=== PATIENT | male | born 1970 | race Caucasian/White ===

== ENCOUNTER 2020-08-22 10:02 | Emergency (ER) | payer MEDICAID ==
[2020-08-22] MEDS ORDERED: Metoclopramide 10 MG/2 ML SDV IVPUSH ONE (10:15)
[2020-08-22] MEDS ORDERED: Dextrose 5%-Lactated Ringers 1,000 ML IV SCH (10:15)
[2020-08-22] MEDS ORDERED: Lidocaine 2% Jelly 10 ML Urojet MUCMEM ONE (10:16)
--- NOTE | 2020-08-22 10:21 | EDM.PDOC ---
ED HPI GENERAL MEDICAL PROBLEM - General Chief Complaint: Trauma Stated Complaint: [facility] Time Seen by Provider: 08/22/20 10:14 Source of Information: Reports: Patient History Limitations: Reports: Altered Mental Status - History of Present Illness INITIAL COMMENTS - FREE TEXT/NARRATIVE: 49-year-old male presents to the ED per [facility] and is nonverbal. History suggest that he was found at the bottom of a stairwell in an apartment building possibly having fallen down 8 concrete stairs. Patient was found unresponsive and likely unconscious. Clear at this time who found a man who called the ambulance. Does have some swelling over his left anterior face. Both pupils are 4 mm in size and respond to light sluggishly there is no gaze palsy. Information obtained after the patient already left the department indicates that he was speaking to the paramedics upon arrival. He deteriorated neurologically in route to the hospital and by the time he was in the examining room and a trauma alert was called he was unresponsive to verbal and physical stimuli. Patient appears to be severely intoxicated by alcohol and he is not able to offer any information. He arrives c-collar in place but not on spine board. He appears to have had an old injury to his left anterior shoulder with bruising 2 to 3 days of age. Similarly bruising to both knees particular the left side appears to be 2 to 3 days of age. No outward signs of head or facial trauma. Chest wall showed no syncope subcutaneous emphysema or crepitus. No obvious injuries to either upper extremity other than the bruising and ecchymoses of the left anterior lateral shoulder. Acromioclavicular joints appear to be intact. Benign abdominal examination. Genitals normal anus has normal rectal tone. Logrolling showed no abrasions contusions or abnormalities of the thoracic or lumbar spine with no step-off deformities of the spinous processes. There are a few superficial scratches to the left posterior iliac crest and upper buttock area. He had normal internal/external rotation of both hips no evidence of pelvic fracture femurs and tib-fib's appear to be intact. Onset: Unknown/Unsure (It is unclear how long he has been lying at the bottom of the stairwell. He was very cool to examination nurses recorded temperature is 35.8.) Onset Date: 08/22/20 (Zomig release sometime early this morning) Duration: Other (Known) Location: Reports: Face Improves with: Reports: None Worsens with: Reports: None Context: Reports: Trauma (Still falling down 8 concrete stairs under the influence of alcohol.). 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) - Related Data Allergies Allergy/AdvReac Type Severity Reaction Status Date / Time acetaminophen [From Lortab] Allergy Nausea and Verified 10/23/19 03:06 MONOTYPE SETTER Vomiting hydrocodone bitartrate Allergy Nausea and Verified 10/23/19 03:06 MONOTYPE SETTER [From Lortab] Vomiting any narcotics Allergy Hypotension Uncoded 10/23/19 03:06 MONOTYPE SETTER Home Meds: Home Meds Aspirin 81 mg PO DAILY 10/23/19 [History] Past Medical History - Past Health History Medical/Surgical History: Denies Medical/Surgical History Other Respiratory History: "film on left lung base" Gastrointestinal History: Reports: GERD, PUD Other Gastrointestinal History: Ulcers, currently bleeding - Infectious Disease History Infectious Disease History: Reports: Chicken Pox - Past Surgical History GI Surgical History: Reports: Charlotte Fundoplication Social & Family History - Family History Family Medical History: No Pertinent Family History - Living Situation & Occupation Living situation: Reports: Single Occupation: Unemployed Review of Systems - Review of Systems Review Of Systems: Unable To Obtain Reason Not Obtained: Able to obtain as the patient is unresponsive to verbal stimuli a ED EXAM, GENERAL - Physical Exam Exam: See Below Exam Limited By: Other (Arrives unresponsive to verbal stimuli and moans only to aggressive sternal rub.) General Appearance: Other (Temperature was recorded at 35.8. Heart rate 109 and sinus respiratory to 16 pulse ox 100 BP 161 100 but it did come down to) Eye Exam: Bilateral Eye: Normal Inspection (pupils were 4 mm and equal bilaterally--sluggish to light.), PERRL (No gaze palsy) Ears: Normal External Exam, Normal TMs Nose: Other (Blood within the left anterior nares. Right nares clear. No nasal septal hematoma evident.) Throat/Mouth: Other (He appears to have chipped his right upper lateral incisor tooth. He could be old. There was some bright red blood in the posterior oropharynx.). No: Normal Teeth, Normal Oropharynx Head: Other (Obvious signs of trauma to the head. There is some mild facial swelling over the left zygoma and maxillary sinus) Neck: Other Respiratory/Chest: No Respiratory Distress (He arrives in a c-collar. He will be left in place until cleared C-spine cleared by CT scan.), Lungs Clear, Normal Breath Sounds, No Accessory Muscle Use, Other (Overt signs of chest wall trauma. No subcutaneous emphysema no crepitus on palpation of the ribs.) Cardiovascular: Normal Peripheral Pulses, Regular Rate, Rhythm, No Edema, No Gallop, No Murmur, No Rub, Tachycardia (Tachycardia 109/min.) Peripheral Pulses: 2+: Posterior Tibial (L), Posterior Tibial (R), Dorsalis Pedis (L), Dorsalis Pedis (R), 3+: Carotid (L), Carotid (R) GI/Abdominal: Normal Bowel Sounds, Soft, Non-Tender, No Organomegaly, No Abnormal Bruit, No Mass, Pelvis Stable, Other (He has a midline laparotomy surgical wound from xiphisternum to the umbilicus apparently had a Charlotte fundoplication for severe reflux disease.). No: Guarding, Rigid (Male) Exam: No Hernia, Circumcised, Other (Evidence of injury to the genitals.). No: Scrotum Tenderness (L) Rectal (Males) Exam: Normal Exam, Other (Good sphincter tone) Back Exam: Normal Inspection, Other ([place]eling shows no step-off deformities of the thoracic or lumbar spine. There are no abrasions contusions to the thoracic or lumbar spine. There is a few scratches over the left posterior iliac crest.) Extremities: Other (Has bruising anterior aspect of his left shoulder which appears to be 2 to 3 days old. He has range of motion is full. There are no injuries to the wrists fingers elbows or right shoulder. There is some bruising to the left anterior knee over the patella. Appears to be a few days old as well. He has full range of motion of his hips and knees and no pelvic fractures identified clinically.) Neurological: Unresponsive Skin Exam: Cool (Is cool to touch it appears that he has been exposed to the elements for period of time. Nurses recorded temperature is 35.8.) ED TRAUMA PROCEDURES - Endotracheal Intubation Time of Intubation: 12:05 ET Intubation Indication: Airway Protection Preparation: Suction, Balloon Tested, BVM Set Up, Difficult Airway Equip, Other Pre-Oxygenation: Assisted with BVM, 100% FiO2 Anesthesia Meds: Etomidate, Lidocaine ( 4 mg 120 mg), Midazolam (2 mg), Succinylcholine (20 mg), Vecuronium (8 mg) Placement: Orotracheal, Complicated Placement Cords Visualized: No, Grade 2 ETT Size In mm: 8 Number of Attempts: 1 Confirmed By: CO2 Indicator, Bilateral Breath Sounds, Chest Xray Tube Secured By: By RT Endotracheal Intubation Comment: Patient on ventilator initially with respiratory rate of 12. Tidal volume of 500 mils. PEEP of 5 FiO2 of 50% #1 Interpretation EKG Date: 08/22/20 Time: 11:00 Rhythm: Other Rate (Beats/Min): 114 [place]: Normal P-Wave: Present QRS: Other (Initial poor R wave progression. Early R wave transition consider septal hypertrophy pattern) ST-T: Normal QT: Prolonged (Mildly prolonged) EKG Interpretation Comments: Abnormal ECG Course - Vital Signs Last Recorded V/S: Last Vital Signs Temp 35.8 C L 08/22/20 10:14 Pulse 109 H 08/22/20 10:14 Resp 16 08/22/20 10:14 BP 161/100 H 08/22/20 10:14 Pulse Ox 100 08/22/20 10:14 - Orders/Labs/Meds Orders: Active Orders 24 hr Category Date Time Status Cervical Spine wo Cont [CT] Stat Exams 08/22/20 10:18 Taken Chest 1V-Tube Placement Chk NC [CR] Stat Exams 08/22/20 12:22 Taken Chest Abdomen Pelvis w Cont [CT] Stat Exams 08/22/20 10:19 Taken Head wo Cont [CT] Stat Exams 08/22/20 10:17 Taken Lumbar Spine wo Cont [CT] Stat Exams 08/22/20 10:18 Taken Shoulder Comp Lt [CR] Stat Exams 08/22/20 10:20 Taken Thoracic Spine wo Cont [CT] Stat Exams 08/22/20 10:18 Taken Desired Level of Sedation (RASS) [AST] Click to Edit Oth 08/22/20 12:15 Ordered Labs: Laboratory Tests 08/22/20 08/22/20 08/22/20 Range/Units 10:30 10:30 10:30 WBC 13.19 H (4.23-9.07) K/mm3 RBC 5.37 (4.63-6.08) M/mm3 Hgb 16.8 (13.7-17.5) gm/dl Hct 50.2 (40.1-51.0) % MCV 93.5 H (79.0-92.2) fl MCH 31.3 (25.7-32.2) pg MCHC 33.5 (32.2-35.5) g/dl RDW Std Deviation 46.9 H (35.1-43.9) fL Plt Count 233 (163-337) K/mm3 MPV 8.8 L (9.4-12.3) fl Neut % (Auto) 86.1 H (34.0-67.9) % Lymph % (Auto) 6.4 L (21.8-53.1) % Jones % (Auto) 7.1 (5.3-12.2) % Eos % (Auto) 0 L (0.8-7.0) Baso % (Auto) 0.1 (0.1-1.2) % Neut # (Auto) 11.36 H (1.78-5.38) K/mm3 Lymph # (Auto) 0.85 L (1.32-3.57) K/mm3 Jones # (Auto) 0.93 H (0.30-0.82) K/mm3 Eos # (Auto) 0.00 L (0.04-0.54) K/mm3 Baso # (Auto) 0.01 (0.01-0.08) K/mm3 Manual Slide Review Abnormal smear PT 10.9 (9.7-12.0) SECONDS INR 1.02 APTT 26.7 (21.7-31.4) SECONDS Sodium 144 (136-145) mEq/L Potassium 4.1 (3.5-5.1) mEq/L Chloride 106 (98-107) mEq/L Carbon Dioxide 23 (21-32) mEq/L Anion Gap 19.1 H (5-15) BUN 17 (7-18) mg/dL Creatinine 0.9 (0.7-1.3) mg/dL Est Cr Clr Drug Dosing 95.00 mL/min Estimated GFR (MDRD) > 60 (>60) mL/min BUN/Creatinine Ratio 18.9 H (14-18) Glucose 102 (74-106) mg/dL Calcium 9.2 (8.5-10.1) mg/dL Magnesium 2.1 (1.8-2.4) mg/dl Total Bilirubin 0.5 (0.2-1.0) mg/dL AST 54 H (15-37) U/L ALT 65 H (16-63) U/L Alkaline Phosphatase 77 (46-116) U/L Troponin I < 0.017 (0.00-0.056) ng/mL C-Reactive Protein 2.3 H* (<1.0) mg/dL NT-Pro-B Natriuret Pep (0-125) pg/mL Total Protein 7.8 (6.4-8.2) g/dl Albumin 3.9 (3.4-5.0) g/dl Globulin 3.9 gm/dL Albumin/Globulin Ratio 1.0 (1-2) Urine Color (Yellow) Urine Appearance (Clear) Urine pH (5.0-8.0) Ur Specific [place] (1.005-1.030) Urine Protein (Negative) Urine Glucose (UA) (Negative) Urine Ketones (Negative) Urine Occult Blood (Negative) Urine Nitrite (Negative) Urine Bilirubin (Negative) Urine Urobilinogen (0.2-1.0) Ur Leukocyte Esterase (Negative) Urine RBC (0-5) /hpf Urine WBC (0-5) /hpf Ur Squamous Epith Cells (0-5) /hpf Urine Bacteria (FEW) /hpf Urine Mucus (FEW) /hpf Urine Opiates Screen (LIWLJP=751) Ur Buprenorphine Scrn (CUTOFF=10) Ur Oxycodone Screen (PPX5CW=764) Urine Methadone Screen (IFP0ZZ=797) Ur Propoxyphene Screen (KCDDLQ=979) Ur Barbiturates Screen (WBSAKI=012) Ur Tricyclics Screen (FVMKDE=615) Ur Phencyclidine Scrn (CUTOFF=25) Ur Amphetamine Screen (MZZNTO=614) U Methamphetamines Scrn (OFEDBK=674) U Benzodiazepines Scrn (VIJHOB=406) U Cocaine Metab Screen (IYAYLT=410) U Marijuana (THC) Screen (CUTOFF=50) Ethyl Alcohol 0.08 (0.00) gm% Ketones (0.0-0.3) mM SARS-CoV-2 RNA (DASIA) (NEGATIVE) 08/22/20 08/22/20 08/22/20 Range/Units 10:30 10:30 11:29 WBC (4.23-9.07) K/mm3 RBC (4.63-6.08) M/mm3 Hgb (13.7-17.5) gm/dl Hct (40.1-51.0) % MCV (79.0-92.2) fl MCH (25.7-32.2) pg MCHC (32.2-35.5) g/dl RDW Std Deviation (35.1-43.9) fL Plt Count (163-337) K/mm3 MPV (9.4-12.3) fl Neut % (Auto) (34.0-67.9) % Lymph % (Auto) (21.8-53.1) % Jones % (Auto) (5.3-12.2) % Eos % (Auto) (0.8-7.0) Baso % (Auto) (0.1-1.2) % Neut # (Auto) (1.78-5.38) K/mm3 Lymph # (Auto) (1.32-3.57) K/mm3 Jones # (Auto) (0.30-0.82) K/mm3 Eos # (Auto) (0.04-0.54) K/mm3 Baso # (Auto) (0.01-0.08) K/mm3 Manual Slide Review PT (9.7-12.0) SECONDS INR APTT (21.7-31.4) SECONDS Sodium (136-145) mEq/L Potassium (3.5-5.1) mEq/L Chloride (98-107) mEq/L Carbon Dioxide (21-32) mEq/L Anion Gap (5-15) BUN (7-18) mg/dL Creatinine (0.7-1.3) mg/dL Est Cr Clr Drug Dosing mL/min Estimated GFR (MDRD) (>60) mL/min BUN/Creatinine Ratio (14-18) Glucose (74-106) mg/dL Calcium (8.5-10.1) mg/dL Magnesium (1.8-2.4) mg/dl Total Bilirubin (0.2-1.0) mg/dL AST (15-37) U/L ALT (16-63) U/L Alkaline Phosphatase (46-116) U/L Troponin I (0.00-0.056) ng/mL C-Reactive Protein (<1.0) mg/dL NT-Pro-B Natriuret Pep 13 (0-125) pg/mL Total Protein (6.4-8.2) g/dl Albumin (3.4-5.0) g/dl Globulin gm/dL Albumin/Globulin Ratio (1-2) Urine Color Yellow (Yellow) Urine Appearance Clear (Clear) Urine pH 5.5 (5.0-8.0) Ur Specific [place] 1.025 (1.005-1.030) Urine Protein Negative (Negative) Urine Glucose (UA) Negative (Negative) Urine Ketones 2+ H (Negative) Urine Occult Blood Negative (Negative) Urine Nitrite Negative (Negative) Urine Bilirubin Negative (Negative) Urine Urobilinogen 0.2 (0.2-1.0) Ur Leukocyte Esterase Negative (Negative) Urine RBC 0-5 (0-5) /hpf Urine WBC 0-5 (0-5) /hpf Ur Squamous Epith Cells 0-5 (0-5) /hpf Urine Bacteria Few (FEW) /hpf Urine Mucus Few (FEW) /hpf Urine Opiates Screen (AFKRCL=424) Ur Buprenorphine Scrn (CUTOFF=10) Ur Oxycodone Screen (UMD3CY=499) Urine Methadone Screen (XUX7VT=398) Ur Propoxyphene Screen (VHLQKR=894) Ur Barbiturates Screen (HSQENR=246) Ur Tricyclics Screen (RSDESO=911) Ur Phencyclidine Scrn (CUTOFF=25) Ur Amphetamine Screen (YUOLIE=667) U Methamphetamines Scrn (OCFWTA=824) U Benzodiazepines Scrn (BJZDEF=933) U Cocaine Metab Screen (ZEQYGY=799) U Marijuana (THC) Screen (CUTOFF=50) Ethyl Alcohol (0.00) gm% Ketones 1.40 (0.0-0.3) mM SARS-CoV-2 RNA (DASIA) (NEGATIVE) 08/22/20 08/22/20 Range/Units 11:29 13:25 WBC (4.23-9.07) K/mm3 RBC (4.63-6.08) M/mm3 Hgb (13.7-17.5) gm/dl Hct (40.1-51.0) % MCV (79.0-92.2) fl MCH (25.7-32.2) pg MCHC (32.2-35.5) g/dl RDW Std Deviation (35.1-43.9) fL Plt Count (163-337) K/mm3 MPV (9.4-12.3) fl Neut % (Auto) (34.0-67.9) % Lymph % (Auto) (21.8-53.1) % Jones % (Auto) (5.3-12.2) % Eos % (Auto) (0.8-7.0) Baso % (Auto) (0.1-1.2) % Neut # (Auto) (1.78-5.38) K/mm3 Lymph # (Auto) (1.32-3.57) K/mm3 Jones # (Auto) (0.30-0.82) K/mm3 Eos # (Auto) (0.04-0.54) K/mm3 Baso # (Auto) (0.01-0.08) K/mm3 Manual Slide Review PT (9.7-12.0) SECONDS INR APTT (21.7-31.4) SECONDS Sodium (136-145) mEq/L Potassium (3.5-5.1) mEq/L Chloride (98-107) mEq/L Carbon Dioxide (21-32) mEq/L Anion Gap (5-15) BUN (7-18) mg/dL Creatinine (0.7-1.3) mg/dL Est Cr Clr Drug Dosing mL/min Estimated GFR (MDRD) (>60) mL/min BUN/Creatinine Ratio (14-18) Glucose (74-106) mg/dL Calcium (8.5-10.1) mg/dL Magnesium (1.8-2.4) mg/dl Total Bilirubin (0.2-1.0) mg/dL AST (15-37) U/L ALT (16-63) U/L Alkaline Phosphatase (46-116) U/L Troponin I (0.00-0.056) ng/mL C-Reactive Protein (<1.0) mg/dL NT-Pro-B Natriuret Pep (0-125) pg/mL Total Protein (6.4-8.2) g/dl Albumin (3.4-5.0) g/dl Globulin gm/dL Albumin/Globulin Ratio (1-2) Urine Color (Yellow) Urine Appearance (Clear) Urine pH (5.0-8.0) Ur Specific [place] (1.005-1.030) Urine Protein (Negative) Urine Glucose (UA) (Negative) Urine Ketones (Negative) Urine Occult Blood (Negative) Urine Nitrite (Negative) Urine Bilirubin (Negative) Urine Urobilinogen (0.2-1.0) Ur Leukocyte Esterase (Negative) Urine RBC (0-5) /hpf Urine WBC (0-5) /hpf Ur Squamous Epith Cells (0-5) /hpf Urine Bacteria (FEW) /hpf Urine Mucus (FEW) /hpf Urine Opiates Screen Negative (DHHVMD=944) Ur Buprenorphine Scrn Negative (CUTOFF=10) Ur Oxycodone Screen Negative (WIJ1AS=014) Urine Methadone Screen Negative (AQG6AH=638) Ur Propoxyphene Screen Negative (PWGIIS=011) Ur Barbiturates Screen Negative (ACBZXU=500) Ur Tricyclics Screen Negative (SYFCTM=585) Ur Phencyclidine Scrn Negative (CUTOFF=25) Ur Amphetamine Screen Negative (RJPJEY=124) U Methamphetamines Scrn Negative (PDKQFN=582) U Benzodiazepines Scrn Negative (CVTEMZ=915) U Cocaine Metab Screen Negative (URSCWJ=176) U Marijuana (THC) Screen Negative (CUTOFF=50) Ethyl Alcohol (0.00) gm% Ketones (0.0-0.3) mM SARS-CoV-2 RNA (DASIA) Negative (NEGATIVE) Meds: Medications Discontinued Medications Generic Name Dose Route Start Last Admin Trade Name Freq PRN Reason Stop Dose Admin Dextrose/Lactated Ringer's 1,000 mls @ 250 mls/hr 08/22/20 10:15 Dextrose 5%-Lactated Ringers IV ASDIRECTED DYLON Lactated Ringer's 1,000 mls @ 250 mls/hr 08/22/20 10:45 08/22/20 10:45 Ringers, Lactated IV 250 mls/hr ASDIRECTED DYLON Administration Propofol Confirm 08/22/20 12:09 Diprivan 100 Ml Administered 08/22/20 12:10 Dose 100 mls @ as directed .ROUTE .STK-MED ONE Propofol 100 mls @ 2.245 mls/hr 08/22/20 12:15 08/22/20 12:17 Diprivan 100 Ml IV 5 mcg/kg/min TITRATE DYLON 2.245 mls/hr Administration Protocol 5 MCG/KG/MIN Lidocaine HCl 10 ml 08/22/20 10:16 08/22/20 11:31 Xylocaine 2% Jelly MUCMEM 08/22/20 10:17 Not Given ONETIME ONE Lidocaine HCl Confirm 08/22/20 11:52 Xylocaine 1% Administered 08/22/20 11:53 Dose 10 ml .ROUTE .STK-MED ONE Metoclopramide HCl 10 mg 08/22/20 10:15 08/22/20 10:33 Reglan IVPUSH 08/22/20 10:16 10 mg ONETIME ONE Administration Propofol Confirm 08/22/20 12:09 Diprivan 20 Ml Administered 08/22/20 12:10 Dose 200 mg .ROUTE .STK-MED ONE Tranexamic Acid 1,000 mg 08/22/20 12:35 08/22/20 12:38 Cyklokapron IVPUSH 08/22/20 12:36 1,000 mg ONETIME ONE Administration Tranexamic Acid Confirm 08/22/20 12:36 Cyklokapron Administered 08/22/20 12:37 Dose 2,000 mg .ROUTE .STK-MED ONE - Radiology Interpretation Free Text/Narrative:: 49-year-old male presents to the ED after being found at the bottom of a well in a local apartment building. It appears that he may have fallen down 8 concrete stairs. Patient does not respond to stimuli. He minimally responds with a bit of a moan to sternal rub. [place] Coma Scale is 4 out of 15. He will require intubation. Smells strongly of alcohol. He had a [place] and each pocket and is hypothesized that he walked across the street to the store to obtain alcohol this morning. He appears to have fallen prior with hematoma bruising to the left anterior shoulder which appears to be 2 to 3 days old. Mild hematoma left anterior knee. He has dried blood in his left anterior nares. Slight contusion left upper eyelid and some swelling over the left zygoma and anterior maxillary sinus. Appears that he may have chipped his right upper second incisor tooth. There was blood in the posterior oropharynx - Re-Assessments/Exams Free Text/Narrative Re-Assessment/Exam: 08/22/20: 11;50: Of the left shoulder shows no fracture dislocation no significant narrowing of the joint spaces no lytic or blastic lesions and no radiopaque foreign bodies in the soft tissues. CT of the chest shows the tip of the endotracheal tube is approximately 8.3 cm above the leslee. There is a OG nasogastric tube which passes down the esophagus and terminates below the diaphragm lungs are unremarkable with no consolidation. Pleural space is unremarkable no pleural effusion no pneumothorax. Multiple surgical clips at the GE junction from previous Charlotte fundoplication. The cardiac silhouette appears normal in size and configuration bones appear unremarkable. CT of the lumbar spine reveals severe narrowing of the L5-S1 disc space with associated vacuum phenomena and marginal osteophytes. Mild narrowing of the L3-L4 disc space also appreciated. Central disc protrusion at the L3-L4 level. Bulging annulus at the L4-L5 level. There is moderate spinal canal stenosis at the L3- L4 and at the L4-L5 levels due to bulging annulus is fibrosis. Unfolding of the ligamentum flavum and moderate degenerative changes of the apophyseal joints. No diastases of the SI joints. There is evidence of previous gastric surgery distended urinary bladder CT chest with contrast lungs are unremarkable with no consolidation no masses. No pneumothorax no pleural effusion. Heart appears to be normal with no cardiomegaly no pericardial effusion. Aorta is unremarkable with no aortic aneurysm. Lymph nodes unremarkable liver there is diffuse decrease in hepatic parenchymal density consistent with fatty infiltration. Gallbladder and bile ducts the patient is status post cholecystectomy. Stomach and bowel evidence of previous gastric surgery evident. Bones and joints are normal. CT of the thoracic spine reveals no acute compression fractures mild thoracic spondylosis. Degenerative disc disease of the lower cervical spine. CT of the brain reveals motion artifact does moderately limit the sensitivity of this exam. Hyperattenuation with in the left side of the aakash measuring 1.7 x 1.2 x 2.8 cm worrisome for an acute hemorrhage. There are no evidence of ventriculomegaly no intraventricular hemorrhages. Motion artifact limits evaluation of the maxillary sinuses and mandible acute fractures noted over the anterior and lateral ram of the left maxillary sinus comminuted fracture involving the left zygomatic arch appreciated. Air-fluid level within the left maxillary sinus. There is aerosolized Zolyse mucosal within the left maxillary sinus consistent with an acute component versus blood. CT of the occipital spine reveals the occipital condyles Oles articulate normally with the first cervical vertebra bilaterally. The odontoid is intact. The lateral masses of C1 are in the normal position with respect to C2. Facet joints demonstrate no obvious dislocation spinous processes are without acute abnormality moderate degenerative changes at the atlantoaxial articulation appreciated moderate narrowing of the C3-C4 and the C5-C6 disc spaces appreciated with associated marginal osteophytes. No acute fractures identified. Acute fractures of the left maxillary sinus and left zygomatic arch once again are appreciated 08/22/20 12:10: White blood cell count is elevated at 13.19. There is a left shift at 86.1% neutrophils on the auto differential. Hemoglobin is 16.8 with hematocrit of 50.2 indicating some degree of hemoconcentration. MCV is elevated at 93.5. Platelet count normal at 233,000. PT is 10.9 with an INR of 1.02. PTT is 26.7. Sodium 144 with a potassium of 4.1 chloride 106 with a bicarb of 23. Anion gap elevated at 19.1. BUN is 17 with a creatinine of 0.9 GFR is greater than 60. Glucose 102 with a calcium of 9.2. Magnesium 2.1 bilirubin 0.5 AST mildly elevated at 54 ALT mildly elevated at 65. Alk phosphatase is 77. Troponin I is less than 0.017. C-reactive protein is 2.3. BNP is 13 total protein is 7.8 albumin fraction 3.9. Urinalysis obtained by catheterization shows 2+ ketones no signs of infection. Urine drug screen was negative. Blood alcohol is 0.08 g% serum ketones elevated at 1.40. 08/22/20 12:30: I did speak with neurosurgeon at [facility] in [place] and he had looked at the pontine hemorrhage identified on CT exam. He suggested that we give the patient a 1 g dose of tranexamic acid now bolus and a second dose over the next half an hour to hour in flight to [place]. Team is here and has him loaded up. Did receive the first dose IV bolus in the emergency department before leaving the department. Over 19 screen was negative. Departure - Departure Time of Disposition: 12:40 Disposition: DC/Tfer to Acute Hospital 02 Condition: Serious Clinical Impression: Pontine hemorrhage, Fall (on) (from) other stairs and steps, initial encounter, Zygomatic fracture, left side, initial encounter for closed fracture Maxillary sinus fracture Qualifiers: Encounter type: initial encounter Fracture type: closed Qualified Code(s): S02.401A - Maxillary fracture, unspecified side, initial encounter for closed fracture - Discharge Information *PRESCRIPTION DRUG MONITORING PROGRAM REVIEWED*: Not Applicable *COPY OF PRESCRIPTION DRUG MONITORING REPORT IN PATIENT VJ: Not Applicable Referrals: PCP,None [Primary Care Provider] - Forms: ED Department Discharge Additional Instructions: There were no beds available in [place] to except a trauma care patient. He was therefore sent to [place] for neurosurgical consultation and management and likely need for intensive care unit due to being intubated and ventilated. Critical Care Note - Critical Care Note Total Time (mins): 150 Sepsis Event Note (ED) - Focused Exam Vital Signs: Vital Signs Temp Pulse Resp BP Pulse Ox 08/22/20 10:14 35.8 C L 109 H 16 161/100 H 100 - My Orders Last 24 Hours: My Active Orders 08/22/20 10:17 Head wo Cont [CT] Stat 08/22/20 10:18 Cervical Spine wo Cont [CT] Stat Lumbar Spine wo Cont [CT] Stat Thoracic Spine wo Cont [CT] Stat 08/22/20 10:19 Chest Abdomen Pelvis w Cont [CT] Stat 08/22/20 10:20 Shoulder Comp Lt [CR] Stat 08/22/20 12:15 Desired Level of Sedation (RASS) [AST] Click to Edit 08/22/20 12:22 Chest 1V-Tube Placement Chk NC [CR] Stat - Assessment/Plan Last 24 Hours: My Active Orders 08/22/20 10:17 Head wo Cont [CT] Stat 08/22/20 10:18 Cervical Spine wo Cont [CT] Stat Lumbar Spine wo Cont [CT] Stat Thoracic Spine wo Cont [CT] Stat 08/22/20 10:19 Chest Abdomen Pelvis w Cont [CT] Stat 08/22/20 10:20 Shoulder Comp Lt [CR] Stat 08/22/20 12:15 Desired Level of Sedation (RASS) [AST] Click to Edit 08/22/20 12:22 Chest 1V-Tube Placement Chk NC [CR] Stat
[2020-08-22 10:24] VITALS: BP 161/100; PULSE 109
[2020-08-22] MEDS ORDERED: Lactated Ringers 1,000 ML IV SCH (10:45)
[2020-08-22] MEDS ORDERED: Lidocaine 1% 10 ML MDV ONE ×2 (11:52→12:00)
[2020-08-22] MEDS ORDERED: Etomidate 2 MG/ML 20 ML SDV IVPUSH ONE (12:00)
[2020-08-22] MEDS ORDERED: Succinylcholine 200 MG/10 ML MDV ONE (12:00)
[2020-08-22] MEDS ORDERED: Water For Injection, Sterile 10 ML SDV ONE (12:00)
[2020-08-22] MEDS ORDERED: Midazolam 1 MG/ML 5 ML SDV ONE (12:00)
[2020-08-22] MEDS ORDERED: propofoL 100 ML ONE (12:09)
[2020-08-22] MEDS ORDERED: Propofol 200 MG/20 ML SDV ONE (12:09)
[2020-08-22] MEDS ORDERED: propofoL 100 ML IV SCH (12:15)
--- NOTE | 2020-08-24 09:42 | CT ---
PROCEDURE INFORMATION: Exam: CT Cervical Spine Without Contrast Exam date and time: 08/22/2020 10:22 AM Age: 49 years old Clinical indication: Injury or trauma; Fall; Concussion/head injury TECHNIQUE: Imaging protocol: Computed tomography images of the cervical spine without contrast. Radiation optimization: All CT scans at this facility use at least one of these dose optimization techniques: automated exposure control; mA and/or kV adjustment per patient size (includes targeted exams where dose is matched to clinical indication); or iterative reconstruction. COMPARISON: No relevant prior studies available. FINDINGS: Bones/joints: No acute cervical fracture. Discs/Spinal canal/Neural foramina: The occipital condyles articulate normally with the first cervical vertebra bilaterally. The odontoid is intact. The lateral masses of C1 are in normal position with respect to C2. Facet joints demonstrate no obvious dislocation. Spinous processes are without acute abnormality. Moderate degenerative changes at the atlantoaxial articulation. Moderate narrowing of the C3-C4 and C5-C6 disc spaces with associated marginal osteophytes. Soft tissues: Unremarkable. Sinuses: Acute fractures of the left lateral maxillary sinus and left zygomatic arch. Air-fluid level within the left maxillary sinus. Lungs: Lung apices are normal. IMPRESSION: 1. Acute fractures of the left lateral maxillary sinus and left zygomatic arch. 2. No acute cervical fracture Thank you for allowing us to participate in the care of your patient. Dictated and Authenticated by: Steve Negrete MD 08/22/2020 12:06 PM Central Time ([place] & [place]) [facility]
--- NOTE | 2020-08-24 09:43 | CT ---
PROCEDURE INFORMATION: Exam: CT Chest With Contrast Exam date and time: 08/22/2020 10:22 AM Age: 49 years old Clinical indication: Injury or trauma; Bite, open; Injury details: Found at bottom of stairwell. Unconscious. May have fallen down 8 stairs. Smells strongly of alcohol TECHNIQUE: Imaging protocol: Computed tomography of the chest with intravenous contrast. Radiation optimization: All CT scans at this facility use at least one of these dose optimization techniques: automated exposure control; mA and/or kV adjustment per patient size (includes targeted exams where dose is matched to clinical indication); or iterative reconstruction. Contrast material: ISO 300; Contrast volume: 125 ml; Contrast route: INTRAVENOUS (IV); COMPARISON: No relevant prior studies available. FINDINGS: Lungs: Unremarkable. No consolidation. No masses. Pleural space: Unremarkable. No pneumothorax. No pleural effusion. Heart: Unremarkable. No cardiomegaly. No pericardial effusion. Aorta: Unremarkable. No aortic aneurysm. Lymph nodes: Unremarkable. No enlarged lymph nodes. Liver: There is a diffuse decrease in hepatic parenchymal density, consistent with mild fatty infiltration. Gallbladder and bile ducts: The patient is status post cholecystectomy. Stomach and bowel: Evidence of previous gastric surgery. Bones/joints: Unremarkable. No acute fracture. Soft tissues: Unremarkable. IMPRESSION: No acute findings. Thank you for allowing us to participate in the care of your patient. Dictated and Authenticated by: Steve Negrete MD 08/22/2020 12:09 PM Central Time ([place] & [place]) [facility]
--- NOTE | 2020-08-24 09:52 | CT ---
Addendum created by Steve Negrete MD on 08/22/2020 12:16 PM Central Time ([place] & [place]): This report contains findings that may be critical to patient care. The findings were verbally communicated via telephone conference with KENISHA KEARNEY at 08/22/2020 12:16 PM [employer]. The findings were acknowledged and understood. Initial Report created on 08/22/2020 12:02 PM Central Time ([place] & [place]): PROCEDURE INFORMATION: Exam: CT Head Without Contrast Exam date and time: 08/22/2020 10:22 AM Age: 49 years old Clinical indication: Injury or trauma; Fall; Abrasion; Not specified TECHNIQUE: Imaging protocol: Computed tomography of the head without contrast. Radiation optimization: All CT scans at this facility use at least one of these dose optimization techniques: automated exposure control; mA and/or kV adjustment per patient size (includes targeted exams where dose is matched to clinical indication); or iterative reconstruction. COMPARISON: No relevant prior studies available. FINDINGS: Limitations: Motion artifact does moderately limit the sensitivity of this examination. Brain: Hyperattenuation within the left side of the aakash measuring 1.7 x 1.2 x 2.8 cm worrisome for acute hemorrhage. Cerebral ventricles: No ventriculomegaly. No intraventricular hemorrhage Bones/joints: Motion artifact limits evaluation of the maxillary sinuses and mandible. Acute fractures noted of the anterior and lateral ram of the left maxillary sinus. Comminuted fracture involving the left zygomatic arch Paranasal sinuses: Air-fluid level within the left maxillary sinusThere is aerosolized mucous with the left maxillary sinus consistent with an acute component. Minimal mucosal disease within the ethmoid air cells. Mastoid air cells: Visualized mastoid air cells are well aerated. Soft tissues: Unremarkable. IMPRESSION: 1. Hyperattenuation within the left side of the aakash measuring 1.7 x 1.2 x 2.8 cm worrisome for acute hemorrhage. 2. Fractures of the left maxillary sinus and zygomatic arch Thank you for allowing us to participate in the care of your patient. Dictated and Authenticated by: Steve Negrete MD 08/22/2020 12:02 PM Central Time ([place]) [facility]
--- NOTE | 2020-08-24 09:55 | CT ---
PROCEDURE INFORMATION: Exam: CT Lumbar Spine Without Contrast Exam date and time: 08/22/2020 10:22 AM Age: 49 years old Clinical indication: Injury or trauma; Fall TECHNIQUE: Imaging protocol: Computed tomography images of the lumbar spine without contrast. Radiation optimization: All CT scans at this facility use at least one of these dose optimization techniques: automated exposure control; mA and/or kV adjustment per patient size (includes targeted exams where dose is matched to clinical indication); or iterative reconstruction. COMPARISON: No relevant prior studies available. FINDINGS: Vertebrae: No acute compression fracture. Discs/Spinal canal/Neural foramina: Severe narrowing of the L5-S1 disc space with associated vacuum phenomena and marginal osteophytes. Mild narrowing of the L3-L4 disc space. Central disc protrusion at the L3-L4 level. Bulging annulus at the L4-L5 level. There is moderate spinal canal stenosis at the L3-L4 and L4-L5 levels due to bulging annulus fibrosis, unfolding of the ligamentum flavum and moderate degenerative changes at the apophyseal joints. Sacrum/coccyx: No diastasis of the sacroiliac joints. Stomach and bowel: Evidence of gastric surgery. Bladder: Distended urinary bladder. Soft tissues: Unremarkable. IMPRESSION: 1. Severe narrowing of the L5-S1 disc space with associated vacuum phenomena and marginal osteophytes. 2. No acute compression fracture. 3. Central disc protrusion at the L3-L4 level. Thank you for allowing us to participate in the care of your patient. Dictated and Authenticated by: Steve Negrete MD 08/22/2020 12:19 PM Central Time ([place]) [facility]
--- NOTE | 2020-08-24 09:56 | CT ---
PROCEDURE INFORMATION: Exam: CT Thoracic Spine Without Contrast Exam date and time: 08/22/2020 10:22 AM Age: 49 years old Clinical indication: Injury or trauma; Fall TECHNIQUE: Imaging protocol: Computed tomography images of the thoracic spine without contrast. Radiation optimization: All CT scans at this facility use at least one of these dose optimization techniques: automated exposure control; mA and/or kV adjustment per patient size (includes targeted exams where dose is matched to clinical indication); or iterative reconstruction. COMPARISON: No relevant prior studies available. FINDINGS: Vertebrae: No acute compression fracture. Mild thoracic spondylosis Discs/Spinal canal/Neural foramina: Degenerative disc disease at the lower cervical spine. Soft tissues: Unremarkable. IMPRESSION: No acute compression fracture. Thank you for allowing us to participate in the care of your patient. Dictated and Authenticated by: Steve Negrete MD 08/22/2020 12:15 PM Central Time ([place]) [facility]
--- NOTE | 2020-08-24 09:57 | CR ---
PROCEDURE INFORMATION: Exam: XR Left Shoulder Exam date and time: 08/22/2020 10:51 AM Age: 49 years old Clinical indication: Other: Markedly bruised anterior shoulder. Appears to be a few days old. TECHNIQUE: Imaging protocol: XR Left shoulder. Views: 2 or more views. COMPARISON: No relevant prior studies available. FINDINGS: Bones/joints: There is no evidence of acute fracture or dislocation. No significant narrowing of the joint spaces. No lytic or blastic lesions. Soft tissues: No radiopaque foreign body within the soft tissues. IMPRESSION: No acute findings appreciated. Thank you for allowing us to participate in the care of your patient. Dictated and Authenticated by: Steve Negrete MD 08/22/2020 12:22 PM Central Time ([place]) [facility]
--- NOTE | 2020-08-24 09:58 | CR ---
PROCEDURE INFORMATION: Exam: XR Chest, 1 View Exam date and time: 08/22/2020 12:07 PM Age: 49 years old Clinical indication: Device placement; Other: Intubation TECHNIQUE: Imaging protocol: XR of the chest Views: 1 view. COMPARISON: CT Chest Abdomen Pelvis w Cont 08/22/2020 10:22 AM FINDINGS: Tubes, catheters and devices: The tip of an endotracheal tube is approximately 8.3 cm above the leslee. There is an OG/NG tube which passes down the esophagus and terminates below the diaphragm. The tip of the tube is not included in the [id number]. Lungs: Unremarkable. No consolidation. Pleural space: Unremarkable. No pleural effusion. No pneumothorax. Heart/Mediastinum: Multiple surgical clips at the GE junction. The cardiac silhouette appears of normal size and configuration. Bones/joints: Unremarkable. IMPRESSION: No acute findings. Thank you for allowing us to participate in the care of your patient. Dictated and Authenticated by: Steve Negrete MD 08/22/2020 1:41 PM Central Time ([place] & [place]) [facility]
== END 2020-08-22 12:40 ==
LOC: JD.ED 10:02
DX: S02.401A Maxillary fracture, unspecified side, initial encounter for closed fracture (principal); S02.40FA Zygomatic fracture, left side, initial encounter for closed fracture; S06.389A Contusion, laceration, and hemorrhage of brainstem with loss of consciousness of unspecified duration, initial encounter; S40.012A Contusion of left shoulder, initial encounter; Z88.6 Allergy status to analgesic agent; Z88.5 Allergy status to narcotic agent; Z20.828 Contact with and (suspected) exposure to other viral communicable diseases; W10.8XXA Fall (on) (from) other stairs and steps, initial encounter
CPT/HCPCS: 31500; 36415; 43752; 70450; 71260; 72125; 72128; 72131; 73030; 74177; 80053; 80306; 80307; 81001; 82009; 83735; 83880; 84484; 85025; 85610; 85730; 86140; 87635; 93005; 96374; 96375; 99291; 99292; J0330; J2001; J2250; J2704; J2765; J3490; J7120; 93010; 99285-25; U0002